=== PATIENT | male | born 1950 | race Caucasian/White ===

== ENCOUNTER 2017-04-17 10:06 | Day surgery (SDC) | payer MEDICARE ==
[2017-04-12 12:22] LABS: BASOPHILS % (AUTO) 0.4 % (0-1); EOSINOPHILS # (AUTO) 0.1 X10'3 (0-0.9); EOSINOPHILS % (AUTO) 1.3 % (0-6); HEMATOCRIT 47.7 % (42.0-52.0); HEMOGLOBIN 16.5 g/dl (14.0-17.9); LYMPHOCYTES # (AUTO) 1.8 X10'3 (1.1-4.8); LYMPHOCYTES % (AUTO) 22.3 % (21-51); MEAN CORPUSCULAR HEMOGLOBIN 30.2 PG (27.0-31.0); MEAN CORPUSCULAR HGB CONC 34.6 % (33.0-36.5); MEAN CORPUSCULAR VOLUME 87.3 FL (78-98); MEAN PLATELET VOLUME 9.2 FL (7.4-10.4); MONOCYTES # (AUTO) 0.5 X10'3 (0-0.9); MONOCYTES % (AUTO) 5.8 % (2-12); NEUTROPHILS # (AUTO) 5.8 X10'3 (1.8-7.7); NEUTROPHILS % (AUTO) 70.2 % (42-75); PLATELET COUNT 247 X10'3 (140-440); RED BLOOD COUNT 5.47 X10'6 (4.70-6.10); WHITE BLOOD COUNT 8.3 X10'3 (4.5-11.0)
[2017-04-12 12:33] LABS: ALBUMIN 3.8 G/DL (3.4-5.0); ANION GAP 4 (8-16); BLOOD UREA NITROGEN 21 MG/DL (7-18); BUN/CREATININE RATIO 19.1 (5.4-32.0); CALCIUM 10.3 MG/DL (8.5-10.1); CHLORIDE 107 MMOL/L (99-107); GLUCOSE 118 MG/DL (70-104); POTASSIUM 4.8 MMOL/L (3.5-5.1); SODIUM 142 MMOL/L (135-145); eGFR 67 ML/MIN
[2017-04-12 12:35] LABS: PARTIAL THROMBOPLASTIN TIME 25 SECONDS (22-32)
[~2017-04-17] VITALS: Ht 185.4 cm; Wt 94.5 kg
[2017-04-17] VITALS (15 sets, daily range): BP systolic 125–174; BP diastolic 76–122
[2017-04-17] MEDS ORDERED: fentaNYL/PF 50MCG/1 ML 2ML syringe IV ONE (10:25)
[2017-04-17] MEDS ORDERED: MIDAZolam 1mg/ml 10ml vial IV ONE (10:25)
[2017-04-17] MEDS ORDERED: normal saline 1000ml 1,000 ML IV SCH (10:25)
[2017-04-17] MEDS ORDERED: NO HOME MEDS (11:04)
[2017-04-17] MEDS ORDERED: hydrALAZINE 20mg/ml inj. IV ONE (12:25)
== END 2017-04-17 14:27 | disposition home or self-care (01) ==
LOC: SSTAY O 10:06
PROVIDERS: ATTEND Internal Medicine Interventional Cardiology
DX: I08.3 Combined rheumatic disorders of mitral, aortic and tricuspid valves (principal); I35.2 Nonrheumatic aortic (valve) stenosis with insufficiency
CPT/HCPCS: 36415; 80048; 85025; 85610; 85730; 93312; J2250; J3010; J7030; A4620; J0360

== ENCOUNTER 2018-02-28 13:08 | Emergency (ER) | payer MEDICARE, OTHER ==
[~2018-02-28] VITALS: Ht 185.4 cm; Wt 90.9 kg
[~2018-02-28 13:08] MED LIST: NO HOME MEDS
[2018-02-28 13:28] VITALS: BP 176/90
[2018-02-28] MEDS ORDERED: HYDROmorphone 1 mg/ml syringe IM ONE (15:05)
[2018-02-28] MEDS ORDERED: ketorolac trometh inj. 60 MG/2 ML VIAL IM ONE (15:05)
[2018-02-28] MEDS ORDERED: TETanus/Pertussis (Acell)/Diphther VAC/PF (Tdap-Adult) 0.5ml syringe IM ONE (15:10)
[2018-02-28] MEDS ORDERED: HYDR-4353 PO (15:21)
== END 2018-02-28 16:34 | disposition home or self-care (01) ==
LOC: ER 13:09
DX: S22.32XA Fracture of one rib, left side, initial encounter for closed fracture (principal); S50.312A Abrasion of left elbow, initial encounter; Z79.899 Other long term (current) drug therapy; W18.39XA Other fall on same level, initial encounter; Y93.89 Activity, other specified; Y92.89 Other specified places as the place of occurrence of the external cause; Y99.8 Other external cause status
CPT/HCPCS: 71046; 90471; 90715; 96372; 99283; J1885

== ENCOUNTER 2018-07-08 15:39 | Outpatient (CLI) | payer MEDICARE | END 2018-07-08 23:59 | disposition home or self-care (01) | LOC: CARD DIAG 15:39 | PROVIDERS: ATTEND Thoracic Surgery (Cardiothoracic Vascular Surgery) | DX: I08.8 Other rheumatic multiple valve diseases (principal) | CPT/HCPCS: 93306 ==

== ENCOUNTER 2018-07-14 20:32 | Emergency (ER) | payer MEDICARE ==
[~2018-07-14] VITALS: Ht 185.4 cm; Wt 100.0 kg
[2018-07-14 21:09] VITALS: BP 173/107
[2018-07-14] MEDS ORDERED: CEPH-572 PO (23:55)
== END 2018-07-15 00:09 | disposition home or self-care (01) ==
LOC: ER 20:33
DX: S01.312A Laceration without foreign body of left ear, initial encounter (principal); Z79.899 Other long term (current) drug therapy; W31.89XA Contact with other specified machinery, initial encounter; Y93.89 Activity, other specified; Y92.89 Other specified places as the place of occurrence of the external cause; Y99.8 Other external cause status
CPT/HCPCS: 12011; 99284

== ENCOUNTER 2022-07-06 08:51 | Day surgery (SDC) | payer MEDICARE ==
[2022-07-06] VITALS (10 sets, daily range): BP systolic 121–145; BP diastolic 58–80
[~2022-07-06] VITALS: Ht 185.4 cm; Wt 85.6 kg
[2022-07-06] MEDS ORDERED: AMLO10TA13 PO (10:25)
[2022-07-07 11:37] LABS: IMMUNOGLOBULIN G, QN, SERUM 1058 mg/dL (603-1613)
[2022-07-10 17:16] LABS: IMMUNOGLOBULIN G, QN CSF 1.6 mg/dL (0.0-10.3); VDRL, CSF Non Reactive (Non Rea:<1:1)
[2022-07-11 18:53] LABS: LYME IGG P23 AB Absent (.); LYME IGG P28 AB Absent (.); LYME IGG P30 AB Absent (.); LYME IGG P41 AB Absent (.); LYME IGG P45 AB Absent (.); LYME IGG P58 AB Absent (.); LYME IGG P66 AB Absent (.); LYME IGG P93 AB Absent (.); LYME IGG WB INTERP Negative (.); LYME IGM P23 AB Absent (.); LYME IGM P39 AB Absent (.); LYME IGM P41 AB Absent (.); LYME IGM WB INTERP Negative (.)
== END 2022-07-06 14:10 | disposition home or self-care (01) ==
LOC: SSTAY O 08:51
PROVIDERS: ATTEND Psychiatry & Neurology Neurology
DX: G25.5 Other chorea (principal); I10 Essential (primary) hypertension; D47.2 Monoclonal gammopathy; Z98.890 Other specified postprocedural states; Z79.899 Other long term (current) drug therapy
CPT/HCPCS: 36415; 62328; 82040; 82042; 82164; 82784; 83916; 86592; 86617; C1751; 77003; A6258

== ENCOUNTER 2023-04-10 10:05 | Day surgery (SDC) | payer MEDICARE ==
[2023-04-03 15:13] LABS: BILIRUBIN,URINE NEGATIVE (Neg); CLARITY,URINE CLEAR (Clear); COLOR,URINE YELLOW (Yellow); GLUCOSE, URINE NEGATIVE (Neg); KETONES,URINE NEGATIVE (Neg); LEUKOCYTE ESTERASE ,URINE NEGATIVE (Neg); NITRITES, URINE NEGATIVE (Neg); OCCULT BLOOD,URINE NEGATIVE (Neg); PROTEIN,URINE NEGATIVE (Neg); UROBILINOGEN,URINE 0.2 E.U/dL (0.2-1.0)
[2023-04-03 15:18] LABS: BASOPHILS # (AUTO) 0.1 X10'3 (0-0.2); BASOPHILS % (AUTO) 1.1 % (0-1); EOSINOPHILS # (AUTO) 0.1 X10'3 (0-0.9); EOSINOPHILS % (AUTO) 1.3 % (0-6); LYMPHOCYTES # (AUTO) 2.1 X10'3 (1.1-4.8); LYMPHOCYTES % (AUTO) 25.1 % (21-51); MEAN CORPUSCULAR HEMOGLOBIN 28.9 PG (27.0-31.0); MEAN CORPUSCULAR HGB CONC 33.3 g/dL (33.0-36.5); MEAN CORPUSCULAR VOLUME 86.9 FL (78-98); MONOCYTES # (AUTO) 0.8 X10'3 (0-0.9); NEUTROPHILS # (AUTO) 5.3 X10'3 (1.8-7.7); NEUTROPHILS % (AUTO) 63.5 % (42-75); PRE OP HEMATOCRIT 45.7 % (42.0-52.0); PRE OP HEMOGLOBIN 15.2 g/dL (14.0-17.9); PRE OP PLATELET COUNT 262 X10'3 (140-440); PRE OP WHITE BLOOD COUNT 8.3 10'3 (4.8-10.8); RED BLOOD COUNT 5.26 X10'6 (4.70-6.10); RED CELL DISTRIBUTION WIDTH 15.1 % (11.5-14.5)
[2023-04-03 15:24] LABS: UA COLLECTION TYPE NON-SPECIFIED
[2023-04-03 15:27] LABS: HEMOGLOBIN A1C 5.7 % (4.5-6.2)
[2023-04-03 15:29] LABS: PRE OP INR 0.9 INR; PRE OP PROTIME 10.1 SECONDS (9.0-12.0)
[2023-04-03 15:30] LABS: ALBUMIN 3.8 G/DL (3.4-5.0); ALKALINE PHOSPHATASE 59 IU/L (46-116); BLOOD UREA NITROGEN 17 MG/DL (7-18); BUN/CREATININE RATIO 20.7 (10.0-20.0); CALCIUM 9.2 MG/DL (8.5-10.1); CHLORIDE 101 MMOL/L (99-107); CREATININE 0.82 MG/DL (0.60-1.10); PRE OP ALT 28 U/L (30-65); PRE OP ANION GAP 7 (8-16); PRE OP AST 29 U/L (10-37); PRE OP BILIRUB, TOTAL 0.5 MG/DL (0.0-1.0); PRE OP GLUCOSE 88 MG/DL (70-104); PRE OP POTASSIUM 3.9 MMOL/L (3.4-5.1); PRE OP SODIUM 139 MMOL/L (135-145); TOTAL CARBON DIOXIDE 31.3 MMOL/L (24-32); TOTAL PROTEIN 7.7 G/DL (6.4-8.2); eCRCL 92 ML/MIN; eGFR > 90 ML/MIN
[2023-04-04 06:16] LABS: ABG BASE EXCESS 2.2 mmol/L (-2.0-2.0); ABG HCO3 26.2 mmol/L (22.0-26.0); ABG OXYGEN SATURATION 96.5 % (94-97); ABG PCO2 (T) 40.5 mmHg (35.0-48.0); ABG PH (T) 7.432 (7.340-7.440); ABG PO2 (T) 85.3 mmHg (75.0-100.0); ALLEN'S TEST POSITIVE; FHHb 3.5 % (0.0-5.0); FMetHb 0.2 % (0.0-1.5); FO2Hb 96.3 % (94-97); MODE ROOM AIR; TOTAL HEMOGLOBIN 15.5 G/dl (14.0-17.9)
[~2023-04-10] VITALS: Ht 185.4 cm; Wt 82.0 kg
[~2023-04-10 10:05] MED LIST changes: +ALEN70TA80 PO; +AMLO10TA13 PO; +CALC600T14 PO; +Insulin Reg/NS 100units/100mL 100 ML IV SCH; +LORazepam 2 mg/ml vial IV ONE; +MECO10005 PO; -NO HOME MEDS; +[UNRECOGNIZED DRUG - OTHER] PO; +albuterol 2.5 MG/3 ML nebule NEB ONE; +cefazolin 2gm/D5W 100mL 100 ML IV ONE; +dextrose 50%-water 50ml dispensing syringe IV PRN; +famotidine 20mg tablet PO ONE; +metoprolol tartrate 12.5mg (1/2 tablet) PO ONE; +mupirocin 2% nasal ointment 1gm UD NS ONE; +ringers solution, lacted 1,000 ML IV SCH; +vancomycin 1,500 MG in NS 300ml IV soln IV ONE
[2023-04-10 10:27] VITALS: RESP 15; O2SAT 98
[2023-04-10 11:06] VITALS: BP 126/75; PULSE 54; RESP 16; TEMP 97.2; O2SAT 97
[2023-04-10] MEDS ORDERED: ceFAZolin 1000mg inj ONE (11:31)
[2023-04-10] MEDS ORDERED: vancomycin 1,000mg inj ONE (11:31)
[2023-04-10] MEDS ORDERED: BUPIVAcaine 0.5% inj/PF 0 ML ONE (11:31)
[2023-04-15] MEDS ORDERED: ATOR10TA PO (09:46)
[2023-04-15] MEDS ORDERED: LOP12.5T PO (09:46)
[2023-04-15] MEDS ORDERED: HYDR-3972 PO (09:46)
[2023-04-15] MEDS ORDERED: ASPI81TA53 PO (09:46)
== END 2023-04-10 12:11 | disposition home or self-care (01) ==
LOC: PAS IN 10:05 → PAS 10:05 → UNDOADMIN 10:05 → PAS 12:11 → UNDODISIN 12:11 → EDSTATUS 13:00
PROVIDERS: ATTEND Thoracic Surgery (Cardiothoracic Vascular Surgery)
DX: I35.0 Nonrheumatic aortic (valve) stenosis (principal); Z53.8 Procedure and treatment not carried out for other reasons; I71.20 Thoracic aortic aneurysm, without rupture, unspecified; I10 Essential (primary) hypertension; M81.0 Age-related osteoporosis without current pathological fracture; Z85.828 Personal history of other malignant neoplasm of skin; Z79.899 Other long term (current) drug therapy; Z98.890 Other specified postprocedural states; Z79.01 Long term (current) use of anticoagulants
CPT/HCPCS: 36415; 36600; 71046; 80053; 81003; 82803; 82948; 83036; 85018; 85025; 85610; 85730; 87081; 93005; 93880; 93970; J0690; J1815; J3370; J7120; S0020

== ENCOUNTER 2023-04-20 14:28 | Outpatient (CLI) | payer MEDICARE ==
[~2023-04-20 14:28] MED LIST changes: +ASPI81TA53 PO; +ATOR10TA PO; +HYDR-3972 PO; -Insulin Reg/NS 100units/100mL 100 ML IV SCH; +LOP12.5T PO; -LORazepam 2 mg/ml vial IV ONE; -albuterol 2.5 MG/3 ML nebule NEB ONE; -cefazolin 2gm/D5W 100mL 100 ML IV ONE; -dextrose 50%-water 50ml dispensing syringe IV PRN; -famotidine 20mg tablet PO ONE; -metoprolol tartrate 12.5mg (1/2 tablet) PO ONE; -mupirocin 2% nasal ointment 1gm UD NS ONE; -ringers solution, lacted 1,000 ML IV SCH; -vancomycin 1,500 MG in NS 300ml IV soln IV ONE
== END 2023-04-20 23:59 | disposition home or self-care (01) ==
LOC: RAD 14:28
PROVIDERS: ATTEND Thoracic Surgery (Cardiothoracic Vascular Surgery)
DX: J90 Pleural effusion, not elsewhere classified (principal); J98.2 Interstitial emphysema; J93.9 Pneumothorax, unspecified; Z95.2 Presence of prosthetic heart valve
CPT/HCPCS: 71046

== ENCOUNTER 2023-04-30 14:37 | Outpatient (CLI) | payer MEDICARE | END 2023-04-30 23:59 | disposition home or self-care (01) | LOC: RAD 14:37 | PROVIDERS: ATTEND Thoracic Surgery (Cardiothoracic Vascular Surgery) | DX: J90 Pleural effusion, not elsewhere classified (principal); J93.9 Pneumothorax, unspecified | CPT/HCPCS: 71046 ==

== ENCOUNTER 2023-05-08 08:32 | Day surgery (SDC) | payer MEDICARE ==
[~2023-05-08] VITALS: Ht 182.9 cm; Wt 83.1 kg
[2023-05-08] VITALS (7 sets, daily range): BP systolic 107–133; BP diastolic 57–83; PULSE 15–82; RESP 14–16; TEMP 98.1; O2SAT 94–98
[2023-05-08] MEDS ORDERED: albumin 25% 100mL bottle x 1 IV PRN (08:55)
[2023-05-08] MEDS ORDERED: ASPI-1265 PO (09:02)
[2023-05-08] MEDS ORDERED: TRIA454O TOP (09:02)
[2023-05-08] MEDS ORDERED: ATOR10TA70 PO (09:02)
[2023-05-08] MEDS ORDERED: METO25TA6 PO (09:02)
== END 2023-05-08 10:20 | disposition home or self-care (01) ==
LOC: SSTAY O 08:32
PROVIDERS: ATTEND Radiology Vascular & Interventional Radiology
DX: J90 Pleural effusion, not elsewhere classified (principal); Z98.890 Other specified postprocedural states; Z79.899 Other long term (current) drug therapy
CPT/HCPCS: 32555; C1729

== ENCOUNTER 2023-05-14 12:16 | Outpatient (CLI) | payer MEDICARE ==
[~2023-05-14 12:16] MED LIST changes: +ASPI-1265 PO; +ATOR10TA70 PO; +METO25TA6 PO; +TRIA454O TOP
== END 2023-05-14 23:59 | disposition home or self-care (01) ==
LOC: RAD 12:16
PROVIDERS: ATTEND Thoracic Surgery (Cardiothoracic Vascular Surgery)
DX: J90 Pleural effusion, not elsewhere classified (principal)
CPT/HCPCS: 71046

== ENCOUNTER 2023-05-25 11:52 | Outpatient (CLI) | payer MEDICARE | END 2023-05-25 23:59 | disposition home or self-care (01) | LOC: RAD 11:52 | PROVIDERS: ATTEND Internal Medicine | DX: J90 Pleural effusion, not elsewhere classified (principal); J93.81 Chronic pneumothorax | CPT/HCPCS: 71046 ==